=== PATIENT | female | born 1990 | race Caucasian/White ===

== ENCOUNTER 2017-04-14 11:54 | Emergency (ER) | payer SELFPAY ==
[~2017-04-14] VITALS: Ht 157.5 cm; Wt 102.1 kg
[2017-04-14] MEDS ORDERED: BACTRIM,SEPT1 TABLET PO (13:09)
[2017-04-14 13:18] VITALS: BP 138/81
== END 2017-04-14 13:19 | disposition home or self-care (01) ==
LOC: EME 11:54 → RME 11:54
DX: L02.212 Cutaneous abscess of back [any part, except buttock and flank] (principal)
CPT/HCPCS: 99281; 99283